=== PATIENT | male | born 1935 | race Caucasian/White ===

== ENCOUNTER → 2017-10-21 | Outpatient (CLI) | payer MEDICARE ==
--- NOTE | 2017-10-21 13:11 | Diagnostic Imaging Report ---
PROCEDURE:US RETROPERITONEAL ( KIDNEY ). COMPARISON:Renal ultrasound 05/29/2015. INDICATIONS:CYST OF KIDNEY TECHNIQUE: Cartwright-scale and color sonographic images of the bilateral kidneys and bladder where obtained in transverse and longitudinal planes. FINDINGS: RIGHT KIDNEY: 10.6 cm in length, cortical thickness 0.8 cm Cysts: None Solid masses: None Stones: None Hydronephrosis: None Echogenicity: Normal renal cortical echogenicity LEFT KIDNEY: 8.7 cm in length, cortical thickness 1.3 cm. Cysts: 1.1 x 1 x 1 cm simple cyst projecting exophytically from the interpolar region is stable in size compared to the examination from May 2015 accounting for differences in technique. Second, larger exophytic cyst projecting from the inferolateral aspect of the left kidney has increased in size now measuring 2.6 x 1.9 x 2.7 cm (previously 2 x 2 by 1.8 cm). It remains without internal septation, vascularity, or other suspicious sonographic features. Solid masses: None Stones: None Hydronephrosis: None Echogenicity: Normal renal cortical echogenicity. Bladder: Unremarkable. Right and left ureteral jets are identified. Prostate: 2.3 x 1.8 x 3.3 cm. Estimated volume 7.3 cc CONCLUSION: Interval increase in size of an exophytic left lower pole renal cyst, which remains without suspicious sonographic features. Stable exophytic simple cyst projecting from the interpolar region of the left kidney. Dictated by: Jose Alberto Link M.D. on 10/21/2017 at 13:18 Electronically approved by: Jose Alberto Link M.D. on 10/21/2017 at 13:18
== END ==
LOC: US 11:38
PROVIDERS: ATTEND Urology
DX: N28.1 Cyst of kidney, acquired (principal)
CPT/HCPCS: 76770

== ENCOUNTER → 2018-10-14 | Day surgery (SDC) | payer MEDICARE ==
[2018-10-12 14:39] LABS: BASOPHILS % 0.4 % (0.0-1.0); EOSINOPHILS # (AUTO) 0.1 (0.0-0.4); EOSINOPHILS % 1.7 % (0.0-6.0); HEMATOCRIT 39.3 % (38.2-49.6); HEMOGLOBIN 12.9 g/dL (14.0-18.0); LYMPHOCYTES # (AUTO) 1.5 (1.0-3.2); LYMPHOCYTES % 21.4 % (18.0-39.1); MEAN CORPUSCULAR HEMOGLOBIN 32.5 pg (28-32); MEAN CORPUSCULAR HGB CONC 32.8 g/dL (31-35); MONOCYTES # (AUTO) 0.7 (0.2-0.8); MONOCYTES % 10.3 % (4.4-11.3); NEUTROPHILS # (AUTO) 4.7 (2.1-6.9); NEUTROPHILS % 65.9 % (38.7-80.0); PLATELET COUNT 174 x10e3/uL (140-360); RED BLOOD COUNT 3.97 x10e6/uL (4.3-5.7); RED CELL DISTRIBUTION WIDTH 13.1 % (11.7-14.4)
--- NOTE | 2018-10-12 15:00 | Diagnostic Imaging Report ---
PROCEDURE: Frontal and lateral views of the chest. COMPARISON: None. INDICATIONS: PRE OPERATIVE CHEST X-RAY FOR UROLIFT PROCEDURE FINDINGS: Lines/tubes: Sternotomy wire sutures and retention clips of a mesh in the upper abdomen are noted. Lungs: The lungs are well inflated and clear. There is no evidence of pneumonia or pulmonary edema. Pleura: There is no pleural effusion or pneumothorax. Heart and mediastinum: The heart and the mediastinum are normal. Bones: Pectus excavatum deformity of the chest. Old left-sided rib fractures. IMPRESSION: No acute cardiopulmonary disease. Aaron Pradhan D.O. Dictated by: Aaron Pradhan D.O. on 10/12/2018 at 15:12 Electronically approved by: Aaron Pradhan D.O. on 10/12/2018 at 15:12
[~2018-10-14] MED LIST: ASPIR 8181 MG PO; BELLADONNA/OPIUM 30 MG SUPP RC ONE; CEFTRIAXONE SOD 1 GM/NS 50 ML 50 ML IV ONE; DEXAMETHASONE SOD PHOS INJ 4 MG/ML VIAL ONE; GENTAMICIN 80MG/NS 100 ML 200 ML IV ONE; IOPAMIDOL 610MG/1ML 300 MG/ML VIAL IV ONE; LIDOCAINE HCL 2% LOCAL INJ 5 ML SDV VIAL INJ ONE; MULTIVITAMINS1 EAC6 PO; ONDANSETRON HCL INJ 2MG/ML 2ML 2 MG/ML VIAL ONE; PRESERVISION T1 EACH PO; PROPOFOL IV EMULSION 10 MG/ML 20 ML VIAL ONE; SEVOFLURANE INHAL SOLN 250 ML PEN BTL ONE; SYNTHROID125 MCG PO
--- OUTSIDE RECORDS SUMMARY | 2018-10-14 06:35 | XMS REPORT ---
Author Author [facility] Address Unknown Phone Unavailable Care Team Providers Care Occupational Psychologist Name Role Phone RAVINDER VINSON Unavailable Unavailable Problems This patient has no known problems. Allergies, Adverse Reactions, Alerts This patient has no known allergies or adverse reactions. Medications This patient has no known medications. Results Test Description Test Time Test Comments Text Results Atomic Results Result Comments CHEST 2 VIEWS 2018-10-12 15:12:00 [place] [address] Patient Name: RUSS MCCORMACK JR MR #: [id number] : 1935 Age/Sex: 82/M Req #: [id number] Adm Physician: Ordered by: RAVINDER VINSON MD Report #: [id number] Location: OR Room/Bed: Procedure: [id number] DX/CHEST 2 VIEWS Exam Date: 10/12/18 Exam Time: 1400 REPORT STATUS: Signed PROCEDURE: Frontal and lateral views of the chest. CO MPARISON: None. INDICATIONS: PRE OPERATIVE CHEST X-RAY FOR UROLIFT PROCEDURE FINDINGS: Lines/tubes: Sternotomy wire sutures and retention clips of a mesh in the upper abdomen are noted. Lungs: The lungs are well inflated and clear. There is no evidence of pneumonia or pulmonary edema. Pleura: There is no pleural effusion or pneumothorax. Heart and mediastinum: The heart and the mediastinum are normal. Bones: Pectus excavatum deformity of the chest. Old left-sided rib fractures. IMPRESSION: No acute cardiopulmonary disease. Kota Pradhan D.O. Dictated by: Kota Pradhan D.O. on 10/12/2018 at 15:12 Electronically approved by: Kota Pradhan D.O. on 10/12/2018 at 15:12 Dictated By: KOTA PRADHAN DO 11 Transcribed By: SOFIE on 10/12/181511 COPY TO: RAVINDER VINSON MD US RENAL RETROPERITONEAL COMP [place] [address] Patient Name: RUSS MCCORMACK JR MR #: [id number] : 1935 Age/Sex: 82/M Req #: [id number] Adm Physician: Ordered by: RAVINDER VINSON MD Report #: [id number] Location: Room/Bed: Procedure: [id number] US/US RENAL RETROPERITONEAL COMP Exam Date: 10/21/17 Exam Time: 1213 REPORT STATUS: Signed PROCEDURE: US RETROPERITONEAL ( KIDNEY ). COMPARISON: Renal ultrasound 05/29/2015. INDICATIONS: CYST OF KIDNEY TECHNIQUE: Cartwright- scale and color sonographic images of the bilateral kidneys and bladder where obtained in transverse and longitudinal planes. FINDINGS: RIGHT KIDNEY: 10.6 cm in length, cortical thickness 0.8 cm Cysts: None Solid masses: None Stones: None Hydronephrosis: None Echogenicity: Normal renal cortical echogenicity LEFT KIDNEY: 8.7 cm in length, cortical thickness 1.3 cm. Cysts: 1.1 x 1 x 1 cm simple cyst projecting exophytically from the interpolar region is stable in size compared to the examination from May 2015 accounting for differences in technique. Second, larger exophytic cyst projecting from the inferolateral aspect of the left kidney has increased in size now measuring 2.6 x 1.9 x 2.7 cm (previously 2 x 2 by 1.8 cm). It remains without internal septation, vascularity, or other suspicious sonographic features. Solid masses: None Stones: None Hydronephrosis: None Echogenicity: Normal renal cortical echogenicity. Bladder: Unremarkable. Right and left ureteral jets are identified. Prostate: 2.3 x 1.8 x 3.3 cm. Estimated volume 7.3 cc CONCLUSION: Interval increase in size of an exophytic left lower pole renal cyst, which remains without suspicious sonographic features. Stable exophytic simple cyst projecting from the interpolar region of the left kidney. Dictated by: Julia Vail M.D. on 2017 at 13:18 Electronically approved by: Julia Vail M.D. on 2017 at 13:18 Dictated By: JULIA VAIL MD 1318 Transcribed By: SOFIE on 10/21/17 1318 COPY TO: RAVINDER VINSON MD
--- NOTE | 2018-10-14 07:20 | NUR ---
SPIRITUAL CARE - Pre-Surgery Assessment: Pt in bed. Pt reported supportive attention from family and friends. Intervention: I provided pastoral presence, hospitality, and sympathetic listening. I acquainted pt with availability of geospatial information scientist while hospitalized. Outcome: Pt expressed appreciation for visit. No need for follow up indicated at this time. JED Saldivarlain Spiritual Care Department O: [phone] Pager: [phone] ([phone] number calling from)
[2018-10-14 12:00] VITALS: BP 157/85
--- NOTE | 2018-12-12 08:22 | Operative Report ---
DATE OF PROCEDURE: 10/14/1936 SURGEON: Shon Regan MD PREOPERATIVE DIAGNOSES: 1. Obstructive benign prostatic hypertrophy. 2. Incomplete bladder emptying. POSTOPERATIVE DIAGNOSES: 1. Obstructive benign prostatic hypertrophy. 2. Incomplete bladder emptying. 3. Urethral stricture disease. OPERATION PERFORMED: 1. Cystourethroscopy with calibration and dilation of urethral stricture ( stricture). 2. Cystourethroscopy with bilateral ureteral catheterization and retrograde urethrography (several procedures were then performed for the incomplete bladder emptying). 3. Interpretation of retrograde urethrography. 4. Supervision of fluoroscopy present. 5. Cystourethroscopy with transurethral implantation of UroLift implant x4 ( for obstructive BPH). ANESTHESIA: General. COMPLICATIONS: None. CLINICAL SUMMARY: Donovan De Leon JR. is an 82-year-old man, who is status post brachytherapy for prostate cancer long ago. The patient has had lower tract obstructive symptomatology and incomplete bladder emptying. He is elected to proceed. PROCEDURE IN DETAIL: Informed consent was verified. Donovan De Leon JR. was appropriately identified, taken to the operating room, and placed on the cystoscopy table in supine position. Anesthesia was uneventfully begun. The patient was then carefully and gently repositioned in dorsal lithotomy position with all pressure points well padded, and his genitalia were prepared and draped in the usual sterile fashion. A 22.5-Swazi cystoscope sheath with the visual obturator in place was atraumatically inserted into the patient's urethra. unremarkable distal urethra to the bulbar region where there was a urethral stricture. This stricture was short. It was dilated to 22.5-Swazi in size, i.e. to the size of the sheath. We then went through prostate that was significant for visual obstructing bilobar prostatic hypertrophy with kissing lateral lobes. We entered the patient's bladder, which showed heavy trabeculations with formation throughout. No suspicious mucosal lesions were identified. There were no tumors and there were no stones. An 8-Swazi catheter was used to cannulate each ureter and retrograde ureteropyelograms were performed. Interpretation Of Retrograde Ureteropyelography: Contrast was instilled in a retrograde fashion bilaterally. There were no tumors, no stones, and no diverticula. Unobstructed drainage was observed bilaterally fluoroscopically. There was ureteral tortuosity noted. It was most prominent on the right hand side compared to the left hand side. Nevertheless, unobstructed drainage was observed bilaterally fluoroscopically. The cystoscope was withdrawn and 20-Swazi cystoscope was atraumatically inserted with the visual obturator and placed. 2 implants were placed anterolaterally, 1.5 cm distal to the bladder neck and 2 were placed at the level of the verumontanum also anterolaterally. This resulted in a continuous anterior channel, which was open. The patient's bladder was drained. Belladonna and Opium suppository was placed and the patient was uneventfully revealing a firm prostate that did not exhibit any nodules. The patient was then uneventfully reversed from anesthesia and taken to the recovery room in stable condition. There were no complications during the procedure. He tolerated the procedure well. postoperative instructions were given and we will follow the patient up in the office at which point in time, we will perform uroflowmetry and bladder ultrasonography. MD ROSIE Saenz/CLINT /[id number]
== END | disposition home or self-care (01) ==
LOC: OR 06:32
PROVIDERS: ATTEND Urology
DX: N40.1 Benign prostatic hyperplasia with lower urinary tract symptoms (principal); N13.8 Other obstructive and reflux uropathy; R39.14 Feeling of incomplete bladder emptying; N35.912 Unspecified bulbous urethral stricture, male; N32.89 Other specified disorders of bladder; E03.9 Hypothyroidism, unspecified; M95.4 Acquired deformity of chest and rib; Z01.810 Encounter for preprocedural cardiovascular examination; Z01.812 Encounter for preprocedural laboratory examination; Z01.818 Encounter for other preprocedural examination; Z79.82 Long term (current) use of aspirin; Z85.46 Personal history of malignant neoplasm of prostate; Z92.3 Personal history of irradiation; Z95.2 Presence of prosthetic heart valve
CPT/HCPCS: 52005; C9740; 36415; 71046; 74420; 85025; 93005; J0696; J1100; J1580; J2001; J2405; L8699